=== PATIENT | female | born 2000 | race Caucasian/White ===

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

== ENCOUNTER 2019-07-17 14:30 | Inpatient (IN) ==
[2019-07-17] MEDS ORDERED: LACTATED RINGERS 1,000 ML IV ONE (17:02)
[2019-07-17] MEDS ORDERED: TERBUTALINE 1 MG/1 ML VIAL SUBCUT ONE (18:31)
[2019-07-17] MEDS ORDERED: MEPERIDINE 25 MG/1 ML VIAL IV ONE (19:16)
[2019-07-17] MEDS ORDERED: ONDANSETRON 4 MG/2 ML VIAL IV ONE (19:27)
[2019-07-17] MEDS ORDERED: ONDANSETRON 4 MG/2 ML VIAL ONE ×2 (19:28→21:51)
[2019-07-17] MEDS ORDERED: LACTATED RINGERS 1,000 ML IV SCH ×2 (19:30→23:00)
[2019-07-17] MEDS ORDERED: FAMOTIDINE 20 MG/2 ML VIAL IV ONE (20:20)
[2019-07-17] MEDS ORDERED: CITRIC ACID/SODIUM CITRATE 30 ML UDCUP PO ONE (20:20)
[2019-07-17] MEDS ORDERED: ceFAZolin 2,000 MG in PREMIX 1 EACH IV ONE (20:20)
[2019-07-17] MEDS ORDERED: OXYTOCIN/LR 30 UNIT/1,000 ML BAG IV ONE (20:22)
[2019-07-17] MEDS ORDERED: OXYTOCIN 10 UNIT/ML VIAL IM ONE (20:22)
[2019-07-17] MEDS ORDERED: INFLUENZA VIRUS VACCINE 0.5 ML SYRINGE IM ONE (20:34)
[2019-07-17] MEDS ORDERED: miSOPROStoL 200 MCG TABLET ONE (20:49)
[2019-07-17] MEDS ORDERED: METHYLERGONOVINE 0.2 MG/1 ML AMP ONE (20:50)
[2019-07-17] MEDS ORDERED: CARBOPROST TROMETHAMINE 250 MCG/ML AMP IM ONE (20:50)
[2019-07-17 20:52] LABS: Basophils % 0.2 % (0.0-0.8); Eosinophils % 0.1 % (0.00-10.9); Hematocrit 27.9 VOL% (35.7-47.0); Hemoglobin 8.3 GM/DL (12.0-16.0); Immature Granulocytes % 1.1 %; Immature Granulocytes Absolute 0.14 #; Lymphocytes # 2.1 10*3/uL (1.4-4.0); Lymphocytes % 16.5 % (21.3-54.2); Mean Corpuscular HGB Conc 29.7 GM/DL (32-36); Mean Corpuscular Volume 79.5 FL (87-102); Monocytes % 6.9 % (1.7-12.7); Neutrophils % 75.2 % (38.7-73.9); Platelet Count 259 T/CUMM (130-400); Red Blood Count 3.51 MC/CUMM (3.8-5.5); Red Cell Distribution Width 14.6 % (9.3-17.3); White Blood Count 12.4 T/CUMM (4-12)
[2019-07-17] MEDS ORDERED: PROPOFOL 200 MG/20 ML VIAL IV ONE (21:50)
[2019-07-17] MEDS ORDERED: ROPIVACAINE 0.5% 30 ML VIAL ONE (21:50)
[2019-07-17] MEDS ORDERED: SEVOFLURANE 1 UNIT/15 MINUTE INH ONE (21:50)
[2019-07-17] MEDS ORDERED: DEXAMETHASONE 4 MG/1 ML VIAL ONE (21:51)
[2019-07-17] MEDS ORDERED: SUCCINYLCHOLINE 200 MG/10 ML VIAL ONE (21:51)
[2019-07-17] MEDS ORDERED: PHENYLEPHRINE 1 MG/10 ML SYRINGE IV ONE (21:51)
[2019-07-17] MEDS ORDERED: fentaNYL 100 MCG/2 ML VIAL ONE (21:51)
[2019-07-17] MEDS ORDERED: MIDAZOLAM 2 MG/2 ML VIAL ONE (21:51)
[2019-07-17] MEDS ORDERED: BUPIVACAINE SPINAL 0.75% 2 ML AMP SPINAL ONE (21:52)
[2019-07-17] MEDS ORDERED: MORPHINE 10 MG/10 ML VIAL ONE (21:52)
[2019-07-17 22:17] LABS: HIV Antigen/Antibody Result Nonreactive (Nonreactive); Hepatitis B Surface Ag Quant 0.24 Index; Hepatitis B Surface Ag Result Negative (Negative)
[2019-07-17] MEDS ORDERED: OXYTOCIN/LR 20 UNIT/1,000 ML BAG IV ONE ×2 (22:29→22:31)
[2019-07-17] MEDS ORDERED: MAGNESIUM HYDROXIDE SUSP 30 ML UDCUP PO PRN (22:31)
[2019-07-17] MEDS ORDERED: ONDANSETRON 4 MG/2 ML VIAL IV PRN (22:31)
[2019-07-17] MEDS ORDERED: ACETAMINOPHEN 325 MG TABLET PO PRN (22:31)
[2019-07-17] MEDS ORDERED: RHO(D) IMMUNE GLOBULIN 300 MCG SYRINGE IM ONE (22:31)
[2019-07-17] MEDS ORDERED: METHYLERGONOVINE 0.2 MG/1 ML AMP IM ONE (22:50)
[2019-07-18 00:01] LABS: Cord Venous Blood HCO3 21.8 MMOL/L; Cord Venous Blood PCO2 39.4 MMHG; Cord Venous Blood PO2 64.8
[2019-07-18 02:34] LABS: Apearance,Urine CLEAR (Clear); Bacteria,Urine Occasional /HPF (Few); Bilirubin,Urine Negative (Negative); Blood, Urine Negative (Negative); Glucose,Urine (UA) Negative (Negative); Ketones,Urine 80 mg/dL (Negative); Mucus,Urine Moderate /LPF (Occasional); Nitrite,Urine Negative (Negative); Protein,Urine 30 MG/DL; RBC,Urine <1 /HPF (0-4); Squamous Epithelial Cell,Urine Occasional /HPF (0-10); Urine Color Yellow (Yellow); Urine Urobilinogen < 2.0 EU/DL (0.2-1.0); WBC,Urine 2 /HPF (0-6)
[2019-07-18 06:37] LABS: Basophils % 0.1 % (0.0-0.8); Hematocrit 25.5 VOL% (35.7-47.0); Hemoglobin 7.7 GM/DL (12.0-16.0); Immature Granulocytes % 0.8 %; Immature Granulocytes Absolute 0.13 #; Lymphocytes # 1.1 10*3/uL (1.4-4.0); Lymphocytes % 6.9 % (21.3-54.2); Mean Corpuscular HGB Conc 30.2 GM/DL (32-36); Mean Corpuscular Volume 78.9 FL (87-102); Mean Platelet Volume 10.9 FL (9.6-12.0); Monocytes % 4.9 % (1.7-12.7); Neutrophils % 87.3 % (38.7-73.9); Platelet Count 259 T/CUMM (130-400); Red Blood Count 3.23 MC/CUMM (3.8-5.5); Red Cell Distribution Width 14.7 % (9.3-17.3); White Blood Count 15.6 T/CUMM (4-12)
[2019-07-18] MEDS: FERROUS SULFATE 325 MG TABLET PO SCH ×3 (09:17→20:04)
[2019-07-18] MEDS: MULTIVITAMIN (PRENATAL) TABLET PO SCH (09:17)
[2019-07-18] MEDS: DOCUSATE SODIUM 100 MG CAPSULE PO SCH ×2 (09:17→20:04)
[2019-07-18] MEDS: METOCLOPRAMIDE 10 MG TABLET PO SCH ×3 (09:17→23:32)
[2019-07-18] MEDS: SIMETHICONE CHEW 80 MG TABLET PO PRN ×2 (09:17→20:04)
[2019-07-18] MEDS: MAGNESIUM HYDROXIDE SUSP 30 ML UDCUP PO SCH ×2 (09:18→20:04)
[2019-07-18] MEDS ORDERED: SODIUM CHLORIDE 0.9% 1,000 ML IV PRN ×2 (12:51→13:03)
[2019-07-18] MEDS ORDERED: ACETAMINOPHEN/CODEINE 300-30 MG TABLET ONE (20:00)
[2019-07-18] MEDS ORDERED: ACETAMINOPHEN/CODEINE 300-30 MG TABLET PO PRN ×2 (20:01)
[2019-07-18] MEDS: IBUPROFEN 800 MG TABLET PO PRN (20:05)
[2019-07-18 20:16] LABS: Hematocrit 30.8 VOL% (35.7-47.0); Hemoglobin 9.4 GM/DL (12.0-16.0)
[2019-07-18] MEDS ORDERED: BISACODYL 10 MG SUPP RECTAL PRN (20:52)
[2019-07-19] MEDS: IBUPROFEN 800 MG TABLET PO PRN (06:05)
[2019-07-19 06:12] LABS: Hematocrit 29.1 VOL% (35.7-47.0); Hemoglobin 8.9 GM/DL (12.0-16.0)
[2019-07-19] MEDS ORDERED: DIPH/TET/ACEL PERT BOOSTER VACCINE 0.5 ML VIAL IM ONE (08:49)
[2019-07-19] MEDS ORDERED: INFLUENZA VIRUS VACCINE 0.5 ML SYRINGE IM ONE (08:50)
[2019-07-19] MEDS: DOCUSATE SODIUM 100 MG CAPSULE PO SCH (09:16)
[2019-07-19] MEDS: METOCLOPRAMIDE 10 MG TABLET PO SCH (09:16)
[2019-07-19] MEDS: FERROUS SULFATE 325 MG TABLET PO SCH (09:16)
[2019-07-19] MEDS: MULTIVITAMIN (PRENATAL) TABLET PO SCH (09:16)
[2019-07-19] MEDS: MAGNESIUM HYDROXIDE SUSP 30 ML UDCUP PO SCH (09:17)
[2019-07-19] MEDS: SIMETHICONE CHEW 80 MG TABLET PO PRN (09:17)
[2019-07-19 11:57] VITALS: BP 97/51
== END 2019-07-19 13:45 | disposition home or self-care (01) | DRG 788 ==
LOC: N.LDOUT 14:30 → N.LD 14:34 → N.OB 07-18 01:00
PROVIDERS: ADMIT Obstetrics & Gynecology; ATTEND Obstetrics & Gynecology
PROC: LDCSECT (ICD-10-PCS; 2019-07-17 21:30)